=== PATIENT | female | born 1975 | race Asian ===

== ENCOUNTER 2018-12-07 08:03 | Day surgery (SDC) | payer MEDICAID ==
[2018-12-06 14:27] VITALS: BMI 19.3
[~2018-12-07] VITALS: Ht 158.8 cm; Wt 50.2 kg
[2018-12-07] VITALS (12 sets, daily range): BP systolic 104–136; BP diastolic 55–77; PULSE 77–106; RESP 9–20; Ht 158.8 cm; Wt 50.2 kg
[~2018-12-07 08:03] MED LIST: CEFAZOLIN 2 GM/50 ML (PMX) 50 ML IVPB ONE; SOD CHLORIDE 0.9% 1,000 ML IV SCH
--- NOTE | 2018-12-07 12:01 | PREAC ---
Date/Time of Note Date/Time of Note DATE: 12/07/18 TIME: 11:59 Anesthesia Eval and Record Evaluation Time Pre-Procedure Interview DATE: 12/07/18 TIME: 11:59 Age 43 Sex female NPO: 8 hrs Preoperative diagnosis RIGHT BREAST CANCER Planned procedure RIGHT NEEDLE LOCALIZATION PARTIAL MASTECTOMY AND SENTINEL LN BIOPSY Past Medical History Past Medical History: None Surgery & Anesthesia Issues No known issue Meds Anticoagulation: No Beta Loi within 24 hr: No Reason Beta Loi not given: Pt. not on B-Loi No Active Prescriptions or Reported Meds Current Medications Sodium Chloride 1,000 ml @ 75 mls/hr [id number] IV ; Start 12/07/18 at 08:00; Stop 12/07/18 at 21:19 Meds reviewed: Yes Allergies Coded Allergies: No Known Allergy (Unverified , 12/07/18) Allergies Reviewed: Yes Labs/Studies Labs Reviewed: Reviewed by anesthesiologist test: Negative Studies: ECG (N/A), CXR (N/A) Pre-procedure Exam Last vitals Vital Signs Date Temp Pulse Resp B/P (MAP) Pulse Ox O2 O2 Flow FiO2 Time Delivery Rate 12/07/18 98.6 77 16 119/61 100 Room Air 10:42 (80) Airway: Adequate mouth opening Mallampati: Mallampati I Teeth: Normal Lung: Normal Heart: Normal ASA Physical Status ASA physical status: 1 Emergency: None Planned Anesthetic General/MAC: ETT, LMA Planned Pain Management Parenteral pain med Pre-operative Attestations Prior to commencing anesthesia and surgery, the patient was re-evaluated, there was verification of: *The patient's identity *The results of appropriate recent lab work and preoperative vital signs *The above evaluation not changing prior to induction *Anesthetic plan, risk benefits, alternative and complications discussed with patient/family; questions answered; patient/family understands, accepts and wis hes to proceed. JL ANDERSON MD Dec 07, 2018 12:01
[2018-12-07] MEDS ORDERED: MIDAZOLAM 1 MG/ML 2 ML INJ ONE (12:11)
[2018-12-07] MEDS ORDERED: DESFLURANE 15 MIN ONE (12:22)
[2018-12-07] MEDS ORDERED: FENTAnyl 50 MCG/ML VIAL ONE (12:22)
[2018-12-07] MEDS ORDERED: EPHEDrine 25 MG/5 ML SYG ONE (12:22)
[2018-12-07] MEDS ORDERED: CEFAZOLIN 1 GM INJ ONE (12:22)
[2018-12-07] MEDS ORDERED: METOCLOPRAMIDE 10 MG INJ ONE (12:22)
[2018-12-07] MEDS ORDERED: PROPOFOL 20 ML ONE (12:22)
[2018-12-07] MEDS ORDERED: ONDANSETRON 4 MG INJ ONE (12:23)
[2018-12-07] MEDS ORDERED: ONDANSETRON 4 MG INJ IV PRN (12:30)
[2018-12-07] MEDS ORDERED: HYDROmorphONE 1 MG/5 ML IV SYRINGE IV PRN ×3 (12:30)
[2018-12-07] MEDS ORDERED: FENTAnyl 50 MCG/ML VIAL IV PRN ×3 (12:30)
[2018-12-07] MEDS ORDERED: MEPERIDINE 25 MG INJ IV PRN (12:30)
[2018-12-07] MEDS ORDERED: OXYCODONE/ACETAMINOPHEN (5/325) TAB PO PRN ×2 (12:30)
[2018-12-07] MEDS ORDERED: DIPHENHYDRAMINE 50 MG INJ IV PRN (12:30)
[2018-12-07] MEDS ORDERED: ISOSULFAN BLUE 1% 5 ML INJ SC ONE (12:42)
[2018-12-07] MEDS ORDERED: HYDROmorphONE 2 MG/ML SYG ONE (12:54)
--- NOTE | 2018-12-07 13:38 | SIPON ---
Date/Time of Note Date/Time of Note DATE: 12/07/18 TIME: 13:35 Operative Report Preoperative Diagnosis Invasive cancer right breast Postoperative Diagnosis Same Operation/Procedure Performed Right needle directed partial mastectomy and axillary dissection utilizing sentinel lymph node technique Surgeon see signature line assistant men's soccer coach Thanh Cardona Second assist: DULCE SILVERMAN MD Anesthesia: general Estimated blood loss: 10 - 50 ml's Transfusion Required none Specimen Right partial mastectomy specimen and sentinel lymph node with additional axillary nodes Grafts/Implants none Complications none LISA HART MD Dec 07, 2018 13:38
[2018-12-07] MEDS ORDERED: HYDROCODONE/APAP (7.5/325) TAB PO PRN (14:00)
--- NOTE | 2018-12-07 15:03 | OPR ---
DATE OF OPERATION: 12/07/2018 PREOPERATIVE DIAGNOSIS: Invasive cancer, right breast. POSTOPERATIVE DIAGNOSIS: Invasive cancer, right breast. OPERATION PERFORMED: Right needle-directed partial mastectomy and axillary dissection utilizing sent inel lymph node technique. ANESTHESIA: General. ANESTHESIOLOGIST: Maru Mancilla MD SURGEON: Fredi Pizano MD PLANT CARE WORKER: Dr. [employer]. INDICATIONS FOR PROCEDURE: The patient is a 43-year-old female who underwent screening mammography. She was found to have a suspicious lesion in the upper inner quadrant of her right breast. Subseque nt core biopsy confirmed invasive cancer. She was counseled as to the risks versus benefits of surge ry. She consented and was scheduled for surgery. DESCRIPTION OF PROCEDURE: On the morning of surgery, the patient presented to [facility] where she underwent localization of the lesion performed by attending radiologist, Dr. Oh Mann. Subsequently, she was brought to the operating theater, placed under general a nesthesia. The right breast and axillary region was prepped and draped in usual sterile fashion. Ap proximately 3 to 4 mL of 1% Lymphazurin blue dye was then injected peritumorally and the breast was g ently massaged for 12 minutes. At this point, a 3 to 4 cm incision was made in the right axillary foreman irline. Subcutaneous tissue was dissected with cautery and subsequently dissection continued through the clavipectoral fascia. A dye-stained lymph or lymphatic was identified, traced to a sentinel lym ph node. There were some additional nodes in this area. The sentinel lymph node and several additio nal nodes were then resected using the LigaSure device. Intraoperative frozen section analysis of th e sentinel node performed by Dr. Lalo Gibbs was negative for metastatic disease. Therefore, no further nodes were taken. The specimen was sent for permanent pathologic analysis. The wound was ir rigated. Minimal bleeding was controlled with cautery. The skin was then reapproximated with a 4-0 Vicryl suture in subcuticular fashion. Attention was then directed to performing the partial mastectomy. A curvilinear incision was made in the region of the previous placed localization wire. Subcutaneous tissue was dissected with cautery . The skin edges were then elevated with skin hooks and wide circumferential dissection of the tissu e associated with the wire was carried out down to the pectoralis major fascia. Specimen was then el evated and transected off of the pectoralis major muscle. It was oriented and sent for radiographic confirmation of capture. Capture was confirmed. It was then sent for permanent pathologic analysis. The wound was irrigated. Minimal bleeding was controlled with cautery. Skin was then reapproximat ed with 4-0 Vicryl suture in interrupted deep dermal fashion, followed by final skin approximation wi th 5-0 PDS sutures in subcuticular fashion, and Dermabond was applied to both incisions. The patient tolerated the procedure well. Estimated blood loss was 30 mL. There were no complications and the patient was transported in stable condition to the recovery room where circumferential compression dr josue was applied. Dictated By: FREDI PIZANO MD TL/NTS Conf#: [id number] DID#: [id number] CC: TEN RIVERA MD; DULCE SILVERMAN MD;*End*
--- NOTE | 2018-12-08 10:17 | PAC ---
Date/Time of Note Date/Time of Note DATE: 12/08/18 TIME: 10:17 Post-Anesthesia Notes Post-Anesthesia Note Last documented vital signs Vital Signs Date Temp Pulse Resp B/P (MAP) Pulse Ox O2 O2 Flow FiO2 Time Delivery Rate 12/07/18 98.3 98 18 131/77 98 Room Air 14:47 (95) Activity: WNL Respiratory function: WNL Cardiovascular function: WNL Mental status: Baseline Pain reasonably controlled: Yes Hydration appropriate: Yes Nausea/Vomiting absent: No JL ANDERSON MD Dec 08, 2018 10:17
== END 2018-12-07 16:00 | disposition home or self-care (01) ==
LOC: SDS 08:03
PROVIDERS: ATTEND Surgery Surgical Oncology
DX: D05.11 Intraductal carcinoma in situ of right breast (principal)
CPT/HCPCS: 19301; 38500; 38792; 84703; 88307; 88331; J0690; J1170; J2250; J2405; J2765; J3010; Z7512; Z7610; Q9968